=== PATIENT | female | born 1960 | race Caucasian/White ===

== ENCOUNTER 2020-10-02 20:00 | Emergency (ER) | payer SELFPAY ==
[~2020-10-02] VITALS: Ht 165.1 cm; Wt 65.3 kg
[2020-10-02] MEDS ORDERED: PROPARACAINE OPHTH 0.5%, 15ML ONE (20:37)
[2020-10-02] MEDS ORDERED: FLUORESCEIN OPHTHALMIC 1 MG STRIP ONE (20:37)
[2020-10-02 20:38] VITALS: BP 188/121
--- NOTE | 2020-10-02 20:40 | NUR ---
Assist RN: BP elevated. Hx of HTN. Took meds in the past but does not any longer. Has blurry vision; thinks it is related to eye problem. No DE LEÓN today.
[2020-10-02] MEDS ORDERED: FLUORESCEIN OPHTHALMIC 1 MG STRIP RIGHTEYE ONE (21:00)
[2020-10-02] MEDS ORDERED: PROPARACAINE OPHTH 0.5%, 15ML RIGHTEYE ONE (21:00)
--- NOTE | 2020-10-02 21:42 | NUR ---
DC EDUCATION PROVIDED, PT DEMONSTRATES UNDERSTANDING. PT AMBULATED STEADILY TO DC WITH RN AND SO
== END 2020-10-02 21:44 ==
LOC: ED 21:38
DX: H10.021 Other mucopurulent conjunctivitis, right eye (principal)
CPT/HCPCS: 99283

== ENCOUNTER 2021-01-10 14:43 | Emergency (ER) | payer SELFPAY ==
[~2021-01-10] VITALS: Ht 162.6 cm; Wt 63.4 kg
--- NOTE | 2021-01-10 15:25 | NUR ---
REPORT FROM RAFA ROBERTS.
[2021-01-10] MEDS ORDERED: BUPIVACAINE/PF 0.5% ONE (15:27)
[2021-01-10] MEDS ORDERED: BUPIVACAINE 0.25% INFIL ONE (15:30)
--- NOTE | 2021-01-10 15:51 | NUR ---
PROVIDER AT BEDSIDE FOR BLOCK
--- NOTE | 2021-01-10 16:36 | NUR ---
PT MEDICATED PER MAR, C/O JAW PAIN IS BACK. PROVIDER AWARE.
[2021-01-10] MEDS ORDERED: OXYcodone/APAP 5/325MG TABLET ONE (16:47)
[2021-01-10 16:54] LABS: BASOPHILS % (AUTO) 0 % (0-1); EOSINOPHILS % (AUTO) 2 % (1-7); LYMPHOCYTES % (AUTO) 18 % (22-44); MEAN CORPUSCULAR HGB CONC 34.8 g/dL (32.4-35.8); MEAN PLATELET VOLUME 7.6 fL (7.4-10.4); MONOCYTES % (AUTO) 11 % (2-9); NEUTROPHILS % (AUTO) 70 % (42-75); PLATELET COUNT 284 x10^3/uL (130-400); RED BLOOD COUNT 4.55 x10^6/uL (3.82-5.3)
[2021-01-10 16:58] LABS: ALANINE AMINOTRANSFERASE 24 U/L (12-78); ALBUMIN 3.9 g/dL (3.4-5.0); ANION GAP 6 mmol/L (5-15); CALCIUM 9.4 mg/dL (8.5-10.1); CHLORIDE 104 mmol/L (98-107); CREATININE 0.73 mg/dL (0.55-1.02)
[2021-01-10 17:00] LABS: ALKALINE PHOSPHATASE 83 U/L (45-117); BILIRUBIN,TOTAL 0.6 mg/dL (0.2-1.0)
[2021-01-10] MEDS ORDERED: OXYcodone/APAP 5/325MG TABLET PO ONE (17:00)
[2021-01-10] MEDS ORDERED: LISINOPRIL 20 MG TABLET ONE (17:25)
--- NOTE | 2021-01-10 17:28 | NUR ---
BREAK RN: PT MEDICATED PER EMAR FOR HTN.
[2021-01-10] MEDS ORDERED: LISINOPRIL 20 MG TABLET PO ONE (17:30)
[2021-01-10 18:06] VITALS: BP 180/109
== END 2021-01-10 19:04 | disposition home or self-care (01) ==
LOC: ED 19:00
DX: K04.7 Periapical abscess without sinus (principal); I10 Essential (primary) hypertension; R07.9 Chest pain, unspecified; R94.31 Abnormal electrocardiogram [ECG] [EKG]
CPT/HCPCS: 36415; 64400; 71045; 80053; 85025; 93005; 99285